=== PATIENT | male | born 1960 | race Caucasian/White ===

== ENCOUNTER 2016-04-07 06:54 | Emergency (ER) | payer BC ==
--- NOTE | 2016-04-07 07:13 | ERNOTE ---
Chest Pain/Cardiac HPI Chief Complaint: Chest Pain Time Seen by Provider: 04/07/16 07:08 Source: patient, family - states he has had multiple episodes such as this and has had significant heart work up, EMS Exam Limitations: no limitations Immunizations: IMMUNIZATION HX Immunizations Up to Date Yes History of Influenza Vaccine Yes Hx Pneumococcal Vaccination No Allergies/Adverse Reactions: Allergies No Known Allergies Allergy (Verified 04/07/16 07:06) Home Medications: HOME MEDICATIONS Naproxen Sodium [Aleve] 440 mg PO BID PRN 12/19/13 [Last Taken 04/06/14 09:00] Aspirin [Aspirin Chewable] 81 mg PO DAILY #30 tab.chew 12/20/13 [Last Taken 08/13 09:00] Escitalopram Oxalate [Lexapro] 10 mg PO HS 04/07/14 [Last Taken 04/06/14 21:00] Metoprolol Succinate [Toprol Xl] 25 mg PO DAILY 10/31/14 [Last Taken Unknown] Acetaminophen [Tylenol] 650 mg PO QID PRN #0 tablet 06/04/15 [Last Taken Unknown ] Flecainide Acetate [Tambocor] 150 mg PO BID 07/30/15 [Last Taken Unknown] Isosorbide Mononitrate 20 mg PO DAILY 07/30/15 [Last Taken Unknown] Lisinopril 10 mg PO DAILY 09/09/15 [Last Taken Unknown] Metoclopramide HCl [Reglan] 5 mg PO BID #28 tab 01/07/16 [Last Taken Unknown] Benzonatate [Tessalon Perle] 100 mg PO TID PRN #30 capsule 04/07/16 [Last Taken Unknown] Narrative: Pt states he awoke with cough that was productive and had some shortness of breath with cough. 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 At work he began cough severely and proceeded to have left sided chest pain radiating to his left shoulder Timing: intermittent Severity/Quality: moderate, severe Location: left chest Chest Pain Radiation: shoulders - left Activities at Onset: activity Modifying Factors - Improves: Present: nitroglycerin - slightly Nitro Today/Relief: 0.4 mg x 2, provided by EMS Aspirin Treatment Today: 81 mg x 4, provided by EMS Associated Symptoms: Present: shortness of breath, diaphoresis Prior Chest Pain/Cardiac Workup: Reports: prior chest pain, cardiac cath - one month ago- had minimal plaques, stress test - one month ago Prior Treatment: Reports: recently seen, other - currently on holter monitor Review of Systems - Review of Systems Constitutional: Present: recent illness, fatigue EYE: Present: no symptoms reported ENT: Present: nose congestion, nasal drainage Respiratory: Present: See HPI, shortness of breath, cough, wheezing Cardiology: Present: See HPI, chest pain Gastrointestinal/Abdominal: Absent: nausea, vomiting Genitourinary: Present: no symptoms reported Musculoskeletal: Present: back pain Skin: Present: no symptoms reported Neurological: Present: emotional problems - states that he has had a lot of stressors in his life lately with family illnesses Endocrine: Present: excessive sweating Hematologic/Lymphatic: Present: no symptoms reported Psych: Present: no symptoms reported - Patient's Past Medical History Patient History - Medical: Anxiety, Depression, Kidney stone Patient History - Cardiac/Respiratory: Atrial Fibrillation, Hypertension, Hyperlipidemia, Myocardial Infarction Patient History - Cancer: No Hx of Cancer Patient History - Surgical Procedures: Cholecystectomy, Colonoscopy, Cardiac stent, EGD, T & A, Other Patient History - Other: None - Family History Father Family History - Medical: Depression Family History - Cardiac/Respiratory: Hypertension Mother Family History - Medical: Arthritis Family History - Cardiac/Respiratory: Hypertension Grandmother-Paternal Family History - Medical: Diabetes Type 2 Grandfather-Maternal Family History - Medical: , History Unknown Grandfather- Paternal Family History - Medical: , History Unknown - Social History Living Situations: home Abuse History: No History of abuse Psych History: No pertinent hx Does anyone smoke in the home?: No Smoking Status: Former smoker Have you smoked in the past 12 months: No Alcohol Use: rarely Drug Use: none - Immunizations Immunizations Up to Date: Yes Hx Pneumococcal Vaccination: No History of Influenza Vaccine: Yes Physical Exam - Physical Exam General Appearance: Present: wd/wn, alert, mild distress, anxious Eye Exam: Normal inspection: bilateral, PERRL: bilateral, EOMI: bilateral Ears, Nose, Throat: Present: normal ENT inspection, hearing grossly normal Neck: Present: normal inspection, nontender Respiratory: Present: no respiratory distress, no accessory muscle use, lungs clear Cardiovascular/Chest: Present: no murmur, normal peripheral pulses, tachycardia , chest tenderness - diffusely on the left with palpation Gastrointestinal/Abdominal: Present: normal bowel sounds, nontender, nondistended, soft Back Exam: Present: normal inspection, normal range of motion Extremity Exam: Present: normal inspection, non-tender, no edema, normal range of motion Neurological Exam: Present: alert, oriented, no motor/sensory deficits Skin Exam: Present: normal color, warm/dry Lymphatic Exam: Present: no adenopathy ED Progress - Results and Orders Patient's Lab Results:: I have reviewed the patient's lab results. Results and Orders: Laboratory Tests 04/07/16 04/07/16 04/07/16 07:20 07:20 07:32 WBC 10.9 H Hgb 14.7 Hct 43.6 Plt Count 183 Sodium 139 Potassium 4.1 Chloride 104 Carbon Dioxide 24.8 Anion Gap 14.3 H BUN 18 Creatinine 0.90 Random Glucose 103 Calcium 9.1 Total Bilirubin 0.4 AST 20 ALT 35 Alkaline Phosphatase 98 Troponin I Less than 0.017 Total Protein 7.7 Albumin 3.9 Influenza Type A Ag Negative Influenza Type B Ag Negative - Vital Signs Patient's Vital Signs:: I have reviewed the patient's vital signs. Vital Signs: Vital Signs 04/07/16 07:00 Temperature 36.2 C L Pulse Rate 80 Respiratory 23 H Rate Blood Pressure 113/72 O2 Sat by Pulse 95 Oximetry - EKG EKG: ST depression - V4 & V5 that is improved from 01/06/16 EKG read: Interp. by me - X-Ray X-Ray #1 X-Ray: chest - old granulomatous changes, nothing acute Interpretation: Interp. by me - Progress/Reassessment Chief Complaint: Chest Pain Departure - Departure Clinical Impression: Bronchitis Disposition: Home Follow Up Needed Condition: Good Instructions: Acute Bronchitis Additional Instructions: May take mucinex 600 mg twice a day to help loosen up mucus. Follow up with your regular doctor as needed and with your wireline field operator about the holter monitor as scheduled. Referrals: Zander Paiz MD [Primary Care Provider] - Prescriptions: Benzonatate [Tessalon Perle] 100 mg PO TID PRN #30 capsule PRN Reason: Cough
[2016-04-07 07:26] LABS: Hematocrit 43.6 % (42.0-52.0); Hemoglobin 14.7 gm/dL (13.5-18.0); Mean Cell Volume 85.3 fl (78-100); Mean Corpuscular Hemoglobin 28.8 pg (27-31); Mean Corpuscular Hgb Conc 33.7 g/dl (32-36); Mean Platelet Volume 10.4 fl (6.0-9.5); Neutrophil # 7.9 K/mm3 (1.3-6.0); Platelet Count 183 K/mm3 (150-450); Red Blood Count 5.11 M/mm3 (4.7-6.0); Red Cell Distribution Width 13.2 % (11.5-14.0); White Blood Count 10.9 K/mm3 (4.0-10.5)
[2016-04-07 07:48] LABS: ALT 35 U/L (19-67); AST 20 U/L (0-48); Albumin * 3.9 gm/dl (3.4-5.0); Alkaline Phosphatase * 98 U/L (50-170); Anion Gap 14.3 mmol/L (6.8-13.8); Bilirubin, Total 0.4 mg/dL (0.0-1.1); Blood Urea Nitrogen 18 mg/dL (6-23); Ca. Corrected For Albumin 8.9 mg/dL (8.4-10.2); Calcium * 9.1 mg/dL (7.9-10.9); Carbon Dioxide 24.8 mmol/L (24-32.6); Chloride 104 mmol/L (97-106); Glucose * 103 mg/dL (70-110); Potassium 4.1 mmol/L (3.4-4.6); Sodium 139 mmol/L (132-142); Total Protein 7.7 gm/dL (6.2-8.2); Troponin I Less than 0.017 ng/ml (0.00-0.10)
[2016-04-07 10:37] VITALS: BP 121/64
== END 2016-04-07 08:54 | disposition home or self-care (01) ==
LOC: SUPCPDRO 06:54 → ER 06:54
DX: J40 Bronchitis, not specified as acute or chronic (principal); Z87.442 Personal history of urinary calculi; Z87.891 Personal history of nicotine dependence; F41.9 Anxiety disorder, unspecified; F32.9 Major depressive disorder, single episode, unspecified; I10 Essential (primary) hypertension; I48.91 Unspecified atrial fibrillation; Z95.5 Presence of coronary angioplasty implant and graft

== ENCOUNTER 2016-11-13 10:49 | Observation (INO) | payer BC ==
[2016-11-13] MEDS ORDERED: NITROGLYCERIN 0.4 MG/TAB BTL SL ONE ×3 (10:54→11:11)
[2016-11-13 11:08] LABS: Hematocrit 42.8 % (42.0-52.0); Hemoglobin 14.6 gm/dL (13.5-18.0); Mean Cell Volume 85.4 fl (78-100); Mean Corpuscular Hemoglobin 29.1 pg (27-31); Mean Corpuscular Hgb Conc 34.1 g/dl (32-36); Mean Platelet Volume 10.7 fl (6.0-9.5); Platelet Count 147 K/mm3 (150-450); Red Blood Count 5.01 M/mm3 (4.7-6.0); Red Cell Distribution Width 13.4 % (11.5-14.0); White Blood Count 7.2 K/mm3 (4.0-10.5)
[2016-11-13] MEDS ORDERED: ASPIRIN 81 MG TAB.CHEW ONE (11:08)
[2016-11-13] MEDS ORDERED: ASPIRIN 81 MG TAB.CHEW PO ONE (11:09)
[2016-11-13] MEDS ORDERED: MORPHINE SULFATE 2 MG/ML DISP.SYRIN IV ONE ×2 (11:14→11:50)
[2016-11-13] MEDS ORDERED: MORPHINE SULFATE 2 MG/ML DISP.SYRIN ONE ×2 (11:16→11:42)
--- NOTE | 2016-11-13 11:22 | ERNOTE ---
Chest Pain/Cardiac HPI Date of Service: 11/13/16 Chief Complaint: Chest Pain Time Seen by Provider: 11/13/16 10:55 Source: patient Exam Limitations: no limitations Immunizations: IMMUNIZATION HX Immunizations Up to Date Yes History of Influenza Vaccine Yes Hx Pneumococcal Vaccination No Allergies/Adverse Reactions: Allergies No Known Allergies Allergy (Verified 11/13/16 11:02) Home Medications: HOME MEDICATIONS Naproxen Sodium [Aleve] 440 mg PO BID PRN 12/19/13 [Last Taken 04/06/14 09:00] Aspirin [Aspirin Chewable] 81 mg PO DAILY #30 tab.chew 12/20/13 [Last Taken 08/13 09:00] Escitalopram Oxalate [Lexapro] 10 mg PO HS 04/07/14 [Last Taken 04/06/14 21:00] Metoprolol Succinate [Toprol Xl] 25 mg PO DAILY 10/31/14 [Last Taken Unknown] Acetaminophen [Tylenol] 650 mg PO QID PRN #0 tablet 06/04/15 [Last Taken Unknown ] Flecainide Acetate [Tambocor] 150 mg PO BID 07/30/15 [Last Taken Unknown] Isosorbide Mononitrate 20 mg PO DAILY 07/30/15 [Last Taken Unknown] Lisinopril 10 mg PO DAILY 09/09/15 [Last Taken Unknown] Metoclopramide HCl [Reglan] 5 mg PO BID #28 tab 01/07/16 [Last Taken Unknown] Benzonatate [Tessalon Perle] 100 mg PO TID PRN #30 capsule 04/07/16 [Last Taken Unknown] Narrative: Here for chest pain in left side of chest since 0100. Pt did not show up till NOW. He has 5/10 chest pain in left side of chest with radiation to the left arm. No N/V diaphoresis or syncope or palpitation. He took no meds for it Review of Systems - Review of Systems Constitutional: Present: no symptoms reported EYE: Present: no symptoms reported ENT: Present: no symptoms reported Respiratory: Present: no symptoms reported Cardiology: Present: See HPI Gastrointestinal/Abdominal: Present: no symptoms reported Genitourinary: Present: no symptoms reported Musculoskeletal: Present: no symptoms reported Skin: Present: no symptoms reported - Patient's Past Medical History Patient History - Medical: Anxiety, Depression, Kidney stone Patient History - Cardiac/Respiratory: Atrial Fibrillation, Hypertension, Hyperlipidemia, Myocardial Infarction Patient History - Cancer: No Hx of Cancer Patient History - Surgical Procedures: Cholecystectomy, Colonoscopy, Cardiac stent, EGD, Pacemaker, T & A, Other Patient History - Other: None - Family History Father Family History - Medical: Depression Family History - Cardiac/Respiratory: Hypertension Mother Family History - Medical: Arthritis Family History - Cardiac/Respiratory: Hypertension Grandmother-Paternal Family History - Medical: Diabetes Type 2 Grandfather-Maternal Family History - Medical: , History Unknown Grandfather- Paternal Family History - Medical: , History Unknown - Social History Living Situations: home Abuse History: No History of abuse Psych History: No pertinent hx Does anyone smoke in the home?: No Alcohol Use: rarely Drug Use: none - Immunizations Immunizations Up to Date: Yes Hx Pneumococcal Vaccination: No History of Influenza Vaccine: Yes Physical Exam - Physical Exam General Appearance: Present: wd/wn, alert, no apparent distress Head Exam: Present: normal inspection Eye Exam: Normal inspection: bilateral, PERRL: bilateral, EOMI: bilateral Ears, Nose, Throat: Present: normal ENT inspection, normal pharynx Neck: Present: normal inspection, nontender, supple, full range of motion Respiratory: Present: no respiratory distress, normal breath sounds, no accessory muscle use, chest nontender, lungs clear Cardiovascular/Chest: Present: regular rate, rhythm, no murmur, normal peripheral pulses Back Exam: Present: normal inspection Extremity Exam: Present: normal inspection, normal range of motion ED Progress - Results and Orders Patient's Lab Results:: I have reviewed the patient's lab results. - Vital Signs Patient's Vital Signs:: I have reviewed the patient's vital signs. Vital Signs: Vital Signs 11/13/16 11/13/16 11/13/16 10:51 11:08 11:11 Temperature 36.7 C Pulse Rate 71 73 71 Respiratory 14 11 L Rate Blood Pressure 140/94 139/75 O2 Sat by Pulse 97 95 Oximetry - EKG EKG: NSR - X-Ray X-Ray #1 X-Ray: chest - Progress/Reassessment Chief Complaint: Chest Pain Plan - Plan Plan: This patient had chest pain which was slightly relieved with GI cocktail. In light of the fact the patient has coronary artery disease, and even though his first set of cardiac enzymes were negative, patient will be admitted to observation unit for further investigation. Dr. Tereza Hdz was consulted in regards to this patient [facility]. Departure - Departure Clinical Impression: Chest pain Qualifiers: Chest pain type: unspecified Qualified Code(s): R07.9 - Chest pain, unspecified Disposition: [facility] Condition: Good Referrals: Zander Paiz MD [Primary Care Provider] -
[2016-11-13 11:31] LABS: Total Cells Counted 100
[2016-11-13 11:34] LABS: ALT 52 U/L (19-67); AST 28 U/L (0-48); Albumin * 3.7 gm/dl (3.4-5.0); Alkaline Phosphatase * 81 U/L (50-170); Anion Gap 14.7 mmol/L (6.8-13.8); BUN/Creatinine Ratio 19.8 (9.0-21.6); Bilirubin, Total 0.4 mg/dL (0.0-1.1); Blood Urea Nitrogen 17 mg/dL (6-23); CKMB 1.3 ng/mL (0.0-9.0); Ca. Corrected For Albumin 8.7 mg/dL (8.4-10.2); Calcium * 8.8 mg/dL (7.9-10.9); Carbon Dioxide 25.1 mmol/L (24-32.6); Chloride 104 mmol/L (97-106); Glucose * 121 mg/dL (70-110); Potassium 3.8 mmol/L (3.4-4.6); Sodium 140 mmol/L (132-142); Total Protein 7.3 gm/dL (6.2-8.2)
[2016-11-13 11:38] LABS: Troponin I Less than 0.017 ng/ml (0.00-0.10)
[2016-11-13 11:40] LABS: Atypical (Reactive) Lymph 3 % (0-2); Lymphocyte 13 % (20-51); Monocyte 1 % (0-9); Neutrophil 83 % (42-75); Platelet Estimate Normal (NORMAL); RBC Morphology Normal (NORMAL)
[2016-11-13] MEDS ORDERED: NORMAL SALINE 1,000 ML IV PRN (11:50)
[2016-11-13] MEDS ORDERED: LIDOCAINE HCL 20 ML UDC PO ONE (11:53)
[2016-11-13] MEDS ORDERED: BELLADONNA ALKALOIDS/PHENOBARB 60 ML BTL PO ONE (11:53)
[2016-11-13] MEDS ORDERED: MAG HYDROX/ALUMINUM HYD/SIMETH 30 ML UDC PO ONE (11:53)
[2016-11-13] MEDS: PANTOPRAZOLE SODIUM 40 MG TABLET.EC PO SCH ×2 (14:12→20:06)
[2016-11-13] MEDS ORDERED: ACETAMINOPHEN 500 MG TABLET PO PRN (16:25)
[2016-11-13] MEDS ORDERED: ALPRAZolam 0.5 MG TABLET PO PRN (16:25)
[2016-11-13 18:10] LABS: CK Total * 101 U/L (0-259); CKMB 1.1 ng/mL (0.0-9.0)
[2016-11-13 18:11] LABS: Troponin I Less than 0.017 ng/ml (0.00-0.10)
[2016-11-13] MEDS: FLECAINIDE ACETATE 100 MG TABLET PO SCH (20:07)
--- NOTE | 2016-11-13 20:59 | HP ---
Chief Complaint - Chief Complaint Date of Service: 11/13/16 Time of Service: 20:58 Chief Complaint: chest pain History of Present Illness: 56 years old male pt of came into the hospital from ER with reports of chest pain while resting. pt stated he had substernal pain that radiated to the left arm, that was later resolved in the ER. Pt stated he was asleep when he was awaken by the discomfort. He denies strenuous activity( pt stated his pain was slightly reproducible with chest palpation),denies nausea, vomiting, diaphoresis, shortness of breath, palpitation or dizziness.October [id number] he had pacemaker inserted at the [facility] and follow up with quality control technician Dr Blood. PMH significant for depression, Afib, kidney stones, CAD , hypertension, GERD, vertigo, back pain and bradycardia,diastolic dysfunction, RVSP 35 mm Hg (12/25/13). In ER he was given a GI cocktail, EKG- NSR and cardiac markers negative. pt stated since his surgery this is the first time having chest pain. He denies drug uses and stated he had a beer with dinner. Plan of care discussed with pt he verbalized understanding and agrees. - Patient's Past Medical History Patient History - Medical: Anxiety, Depression, GERD, Kidney stone Patient History - Cardiac/Respiratory: Atrial Fibrillation, Hypertension, Hyperlipidemia, Other - bradycardia,diastolic dysfunction, RVSP 35 mm Hg () Patient History - Cancer: No Hx of Cancer Patient History - Surgical Procedures: Cholecystectomy, Colonoscopy, EGD, Pacemaker - October 15/2017, T & A, Other Patient History - Other: None - Family History Father Family History - Medical: Depression Family History - Cardiac/Respiratory: Hypertension Mother Family History - Medical: Arthritis Family History - Cardiac/Respiratory: Hypertension Grandmother-Paternal Family History - Medical: Diabetes Type 2 Grandfather-Maternal Family History - Medical: , History Unknown Grandfather- Paternal Family History - Medical: , History Unknown - Social History Living Situations: spouse Abuse History: No History of abuse Psych History: No pertinent hx Does anyone smoke in the home?: No Smoking Status: Former smoker Have you smoked in the past 12 months: No Alcohol Use: occasionally Drug Use: none - Immunizations Immunizations Up to Date: Yes Hx Pneumococcal Vaccination: No History of Influenza Vaccine: Yes Review Of Systems (GEN) - Review of Systems Generalized/Overall Review: Present: No Symptoms Reported EENTM: Present: No Symptoms Reported Respiratory: Present: No Symptoms Reported Cardiac: Present: No Symptoms Reported Abdominal: Present: No Symptoms Reported Genitourinary: Present: No Symptoms Reported Musculoskeletal: Present: No Symptoms Reported Neurological: Present: No Symptoms Reported Skin: Present: No Symptoms Reported Endocrine: Present: No Symptoms Reported Allergies/Adverse Reactions: Allergies Allergy/AdvReac Type Severity Reaction Status Date / Time No Known Allergies Allergy Verified 11/13/16 11:02 Home Medications: HOME MEDICATIONS ALPRAZolam [Xanax] 0.5 mg PO Q8H PRN 11/13/16 [Last Taken Unknown] Acetaminophen 500 mg PO PRN PRN 11/13/16 [Last Taken Unknown] Aspirin [Aspirin EC] 325 mg PO QAM 11/13/16 [Last Taken Unknown] Escitalopram Oxalate [Lexapro] 20 mg PO DAILY 11/13/16 [Last Taken Unknown] Flecainide Acetate 150 mg PO BID 11/13/16 [Last Taken Unknown] Lisinopril [Zestril] 10 mg PO DAILY 11/13/16 [Last Taken Unknown] Metoprolol Succinate [Toprol Xl] 100 mg PO DAILY 11/13/16 [Last Taken Unknown] Naproxen Sodium [Aleve] 440 mg PO DAILY PRN 11/13/16 [Last Taken Unknown] Pantoprazole Sodium 40 mg PO DAILY 11/13/16 [Last Taken Unknown] Exam - Exam Vital Signs: Vital Signs - Last Taken Temp 36.6 C 11/13/16 19:34 Pulse 71 11/13/16 19:34 Resp 16 11/13/16 19:34 BP 136/68 11/13/16 19:34 Pulse Ox 95 11/13/16 19:34 Constitutional: Present: Alert, Oriented x3, Cooperative, Well developed, Morbidly obese ENT Exam: Present: hearing grossly normal Eye Exam: bilateral eye: normal inspection Neck: Present: full range of motion Back Exam: Present: normal inspection Breasts: Present: Exam deferred Respiratory: Present: chest non-tender, lungs clear, normal breath sounds, no respiratory distress Cardiovascular/Chest: Present: normal peripheral pulses, regular rate, rhythm, no chest tenderness, no edema, no gallop Peripheral Pulses: dorsalis-pedis (R): 3+, dorsalis-pedis (L): 3+ Abdomen: Present: Normal bowel sounds, soft, nontender, nondistended, no rebound tenderness /Rectal: Present: Exam deferred Extremity: Present: normal range of motion, non-tender, normal inspection, no pedal edema Skin Exam: Present: normal color, warm/dry Neurologic: Present: oriented x 3 Appearance: Present: appropriate appearance Eye contact: Present: cooperative, good eye contact Thoughts: Present: normal thought pattern Diagnostic Studies: Laboratory Results WBC 7.2 K/mm3 (4.0-10.5) 11/13/16 11:04 RBC 5.01 M/mm3 (4.7-6.0) 11/13/16 11:04 Hgb 14.6 gm/dL (13.5-18.0) 11/13/16 11:04 Hct 42.8 % (42.0-52.0) 11/13/16 11:04 MCV 85.4 fl (78-100) 11/13/16 11:04 MCH 29.1 pg (27-31) 11/13/16 11:04 MCHC 34.1 g/dl (32-36) 11/13/16 11:04 RDW 13.4 % (11.5-14.0) 11/13/16 11:04 Plt Count 147 K/mm3 (150-450) L 11/13/16 11:04 MPV 10.7 fl (6.0-9.5) H 11/13/16 11:04 Neutrophils % (Manual) 83 % (42-75) H 11/13/16 11:04 Lymphocytes % (Manual) 13 % (20-51) L 11/13/16 11:04 Monocytes % (Manual) 1 % (0-9) 11/13/16 11:04 Neutrophils # (Manual) 6.0 K/mm3 (1.3-6.0) 11/13/16 11:04 Lymphocytes # (Manual) 0.9 k/mm3 (1.5-3.5) L 11/13/16 11:04 Monocytes # (Manual) 0.1 k/mm3 (0.0-1.0) 11/13/16 11:04 Atypic/Reactive Lymphs 3 % (0-2) H 11/13/16 11:04 Platelet Estimate Normal (NORMAL) 11/13/16 11:04 RBC Morphology Normal (NORMAL) 11/13/16 11:04 D-Dimer 0.45 mg/L (0.19-0.49) D 11/13/16 11:04 pCO2 38.7 mmHg (35.0-48.0) 11/13/16 11:50 pO2 71.3 mmHg (83.0-108.0) L 11/13/16 11:50 HCO3 24.8 mmol/L (21.0-28.0) 11/13/16 11:50 Total CO2 26.0 mmol/L (19.0-24.0) H 11/13/16 11:50 Base Excess 0.5 mmol/L (-2.0-3.0) 11/13/16 11:50 ABG pH 7.42 (7.35-7.45) 11/13/16 11:50 ABG O2 Sat (Measured) 94.7 % (94.0-98.0) 11/13/16 11:50 Sodium 140 mmol/L (132-142) 11/13/16 11:04 Plasma Sodium 140 mmol/L (130-142) 11/13/16 11:04 Potassium 3.8 mmol/L (3.4-4.6) 11/13/16 11:04 Chloride 104 mmol/L (97-106) 11/13/16 11:04 Carbon Dioxide 25.1 mmol/L (24-32.6) 11/13/16 11:04 Anion Gap 14.7 mmol/L (6.8-13.8) H 11/13/16 11:04 BUN 17 mg/dL (6-23) 11/13/16 11:04 Creatinine 0.86 mg/dL (0.4-1.4) 11/13/16 11:04 Est GFR (Non-Af Amer) 98 mL/min (60-130) 11/13/16 11:04 BUN/Creatinine Ratio 19.8 (9.0-21.6) 11/13/16 11:04 Random Glucose 121 mg/dL (70-110) H 11/13/16 11:04 Calcium 8.8 mg/dL (7.9-10.9) 11/13/16 11:04 Calcium Adj for Albumin 8.7 mg/dL (8.4-10.2) 11/13/16 11:04 Total Bilirubin 0.4 mg/dL (0.0-1.1) 11/13/16 11:04 AST 28 U/L (0-48) 11/13/16 11:04 ALT 52 U/L (19-67) 11/13/16 11:04 Alkaline Phosphatase 81 U/L (50-170) 11/13/16 11:04 Creatine Kinase 101 U/L (0-259) 11/13/16 17:45 CK-MB (CK-2) 1.1 ng/mL (0.0-9.0) 11/13/16 17:45 CK-MB (CK-2) Rel Index 1.1 (0.0-3.6) 11/13/16 17:45 Troponin I Less than 0.017 ng/ml (0.00-0.10) 11/13/16 17:45 Total Protein 7.3 gm/dL (6.2-8.2) 11/13/16 11:04 Albumin 3.7 gm/dl (3.4-5.0) 11/13/16 11:04 CXR: pacemaker, no acute cardiopulmonary process. Assessment/Plan - Narrative Narrative: Chest pain- resolved In ER Gi cocktail given and pain resolved before coming to med-surg CXR: new cardiac pacer Troponin x2 negative EKG- NSR Low sodium diet Oct 15 pt had pacer placed at [facility], he his been followed by quality control technician dr. Blood. Hypertension- stable On adm BP 136/68 Monitor vitals q shift and as indicated May resume home medications Afib- stable Continue with home dose of Tambocor 150mg BID Anxiety and depression- stable Continue with home dose of medications Code status: Full DVT ppx: SCD and ambulate GI ppx:Protonix Time 35 minutes - Assessment/Plan (1) A-fib Problem: Chronic Qualifiers: Atrial fibrillation type: chronic Qualified Code(s): I48.2 - Chronic atrial fibrillation (2) Hypertension Problem: Chronic Qualifiers: Hypertension type: essential hypertension Qualified Code(s): I10 - Essential (primary) hypertension (3) Chest pain Problem: Acute Qualifiers: Chest pain type: unspecified Qualified Code(s): R07.9 - Chest pain, unspecified (4) Anxiety and depression Problem: Chronic
[2016-11-13] MEDS ORDERED: ESCITALOPRAM OXALATE 10 MG TAB PO SCH (21:00)
[2016-11-14 05:55] LABS: CK Total * 83 U/L (0-259); CKMB 0.9 ng/mL (0.0-9.0); Troponin I Less than 0.017 ng/ml (0.00-0.10)
[2016-11-14] MEDS: PANTOPRAZOLE SODIUM 40 MG TABLET.EC PO SCH (07:03)
[2016-11-14 07:08] VITALS: BP 132/87
[2016-11-14] MEDS: FLECAINIDE ACETATE 100 MG TABLET PO SCH (08:45)
[2016-11-14] MEDS ORDERED: ESCITALOPRAM OXALATE 10 MG TAB PO SCH (09:00)
[2016-11-14] MEDS ORDERED: METOPROLOL SUCCINATE 100 MG TABLET.SA PO SCH (09:00)
[2016-11-14] MEDS ORDERED: ASPIRIN 325 MG TABLET.DR PO SCH (09:00)
[2016-11-14] MEDS ORDERED: LISINOPRIL 10 MG TABLET PO SCH (09:00)
--- NOTE | 2016-11-14 10:19 | DS ---
(1) Chest pain Problem: Acute Qualifiers: Chest pain type: unspecified Qualified Code(s): R07.9 - Chest pain, unspecified (2) GERD (gastroesophageal reflux disease) Problem: Chronic Description of Stay: ADMISSION DATE: 11/13/2016 TRANSFER DISCHARGE DATE: 11/14/2016 ADMISSION HPI by ALFREDO Jacobsen: 56 years old male pt of came into the hospital from ER with reports of chest pain while resting. pt stated he had substernal pain that radiated to the left arm, that was later resolved in the ER. Pt stated he was asleep when he was awaken by the discomfort. He denies strenuous activity( pt stated his pain was slightly reproducible with chest palpation),denies nausea, vomiting, diaphoresis, shortness of breath, palpitation or dizziness.October 152016 he had pacemaker inserted at the [facility] and follow up with chef french Dr Blood. PMH significant for depression, Afib, kidney stones, CAD , hypertension, GERD, vertigo, back pain and bradycardia,diastolic dysfunction, RVSP 35 mm Hg (12/25/13). In ER he was given a GI cocktail, EKG- NSR and cardiac markers negative. pt stated since his surgery this is the first time having chest pain. He denies drug uses and stated he had a beer with dinner. Plan of care discussed with pt he verbalized understanding and agrees. HOSPITAL COURSE: The patient was admitted to the hospital for further evaluation of chest pain. The patients chest pain appears to be GI in nature as his pain improved and eventually completely resolved following initiation of Protonix and after he received a couple GI cocktails. The patient was monitored on telemetry overnight and his cardiac enzymes were trended during his admission, all of which were unremarkable. The patient was discharged home in stable condition and instructed to follow-up with his primary care provider to discuss whether or not they feel an outpatient cardiac stress test is warranted. FOLLOW-UP APPOINTMENTS: -PCP, , within 1-2 weeks NEW OR CHANGED MEDICATIONS: -Pantoprazole 40mg PO BID X 2 weeks and then decrease to once daily DISCONTINUED MEDICATIONS: None RADIOLOGY REPORTS: Single view chest x-ray on 11/13/2016 showed: The cardiac silhouette is at least borderline in size but magnification is taken into account. There is a new cardiac pacer identified in the left pectoral pocket with associated right atrial and right ventricular leads. The mediastinum and hilum are within normal limits. There is evidence of prior radiolucencies within the hilum and right mid lung zone. The lung zabala are clear. I do not see evidence for infiltrate, effusion or pulmonary edema. Procedures Performed: none Results and Findings: Laboratory Tests 11/13/16 11/13/16 11/13/16 11:04 11:04 11:04 WBC 7.2 Hgb 14.6 Hct 42.8 MCV 85.4 Plt Count 147 L D-Dimer 0.45 D pCO2 pO2 HCO3 Total CO2 Base Excess ABG pH ABG O2 Sat (Measured) Sodium 140 Plasma Sodium 140 Potassium 3.8 Chloride 104 Carbon Dioxide 25.1 Anion Gap 14.7 H BUN 17 Creatinine 0.86 Est GFR (Non-Af Amer) 98 BUN/Creatinine Ratio 19.8 Random Glucose 121 H Calcium 8.8 Calcium Adj for Albumin 8.7 Total Bilirubin 0.4 AST 28 ALT 52 Alkaline Phosphatase 81 Creatine Kinase CK-MB (CK-2) 1.3 CK-MB (CK-2) Rel Index Troponin I Less than 0.017 Total Protein 7.3 Albumin 3.7 11/13/16 11/13/16 11/14/16 11:50 17:45 05:17 WBC Hgb Hct MCV Plt Count D-Dimer pCO2 38.7 pO2 71.3 L HCO3 24.8 Total CO2 26.0 H Base Excess 0.5 ABG pH 7.42 ABG O2 Sat (Measured) 94.7 Sodium Plasma Sodium Potassium Chloride Carbon Dioxide Anion Gap BUN Creatinine Est GFR (Non-Af Amer) BUN/Creatinine Ratio Random Glucose Calcium Calcium Adj for Albumin Total Bilirubin AST ALT Alkaline Phosphatase Creatine Kinase 101 83 CK-MB (CK-2) 1.1 0.9 CK-MB (CK-2) Rel Index 1.1 1.1 Troponin I Less than 0.017 Less than 0.017 Total Protein Albumin Discharge Disposition: Home self care Disposition: Home self-care Condition: Stable Discharge Activity: Activity as tolerated Discharge Diet: Resume usual diet Referrals: Zander Santiago MD [Primary Care Provider] - Problem Oriented Discharge Instructions to Patient/Family: Nonspecific Chest Pain, [id number] Additional Patient Instructions (free text): Follow-up with PCP, Dr. Chencho, within 1-2 weeks [facility] will call you on Wednesday with follow up appointment. Prescriptions (Any new or edited meds): Pantoprazole Sodium [Protonix] 40 mg PO BID #60 tablet. Complete Home Medications List: Complete Home Medication List: ALPRAZolam [Xanax] 0.5 mg PO Q8H PRN 11/13/16 Acetaminophen 500 mg PO PRN PRN 11/13/16 Aspirin [Aspirin EC] 325 mg PO QAM 11/13/16 Escitalopram Oxalate [Lexapro] 20 mg PO DAILY 11/13/16 Flecainide Acetate 150 mg PO BID 11/13/16 Lisinopril [Zestril] 10 mg PO DAILY 11/13/16 Metoprolol Succinate [Toprol Xl] 100 mg PO DAILY 11/13/16 Pantoprazole Sodium [Protonix] 40 mg PO BID #60 tablet. 11/14/16
== END 2016-11-14 10:56 | disposition home or self-care (01) ==
LOC: ER 10:49 → MS 12:21
PROVIDERS: ADMIT Internal Medicine; ATTEND Internal Medicine
PROC: 4A033R1 Measurement of Arterial Saturation, Peripheral, Percutaneous Approach (ICD-10-PCS; principal; 2016-11-13)
DX: R07.9 Chest pain, unspecified (principal); K21.9 Gastro-esophageal reflux disease without esophagitis; I48.2 Chronic atrial fibrillation; I10 Essential (primary) hypertension; Z87.891 Personal history of nicotine dependence; I25.10 Atherosclerotic heart disease of native coronary artery without angina pectoris; F32.9 Major depressive disorder, single episode, unspecified
CPT/HCPCS: 36415; 36600; 71010; 80053; 82550; 82553; 82803; 84484; 85025; 85379; 93005; 96374; 96376; 99284; G0378